=== PATIENT | female | born 1960 | race Two or more races ===

== ENCOUNTER 2018-05-29 08:02 | Emergency (ER) | payer MEDICAID, OTHER ==
[~2018-05-29] VITALS: Ht 170.2 cm; Wt 82.2 kg
[2018-05-29] MEDS ORDERED: SODIUM CHLORIDE 0.9% 1,000 ML IV ONE (08:21)
[2018-05-29] MEDS ORDERED: ONDANSETRON ODT 4 MG PO ONE (08:30)
[2018-05-29] MEDS ORDERED: SODIUM CHLORIDE FLUSH 10ML SYR IVF ONE (08:30)
[2018-05-29] MEDS ORDERED: THIAMINE 100 MG/ML, 2ML IM ONE (08:30)
[2018-05-29] MEDS ORDERED: SODIUM CHLORIDE 0.9% 1,000ML IVBOLUS ONE (08:30)
[2018-05-29] MEDS ORDERED: LORazepam 2 MG/ML, 1ML ONE ×2 (08:42→10:00)
[2018-05-29] MEDS ORDERED: THIAMINE 100 MG/ML, 2ML ONE (08:43)
[2018-05-29] MEDS ORDERED: ONDANSETRON 2MG/ML, 2ML ONE (08:43)
[2018-05-29 08:45] LABS: BASOPHILS # (AUTO) 0.01 x10^3/uL (0-0.1); BASOPHILS % (AUTO) 0 % (0-1); EOSINOPHILS # (AUTO) 0.01 x10^3/uL (0-0.4); EOSINOPHILS % (AUTO) 0 % (1-7); LYMPHOCYTES # (AUTO) 0.68 x10^3/uL (1-3.4); LYMPHOCYTES % (AUTO) 9 % (22-44); MD NO; MEAN CORPUSCULAR HEMOGLOBIN 35.2 pg (27.0-34.8); MEAN CORPUSCULAR HGB CONC 34.3 g/dL (32.4-35.8); MEAN CORPUSCULAR VOLUME 102.6 fL (80-100); MEAN PLATELET VOLUME 8.7 fL (7.4-10.4); MONOCYTES # (AUTO) 0.54 x10^3/uL (0.2-0.8); MONOCYTES % (AUTO) 7 % (2-9); NEUTROPHILS # (AUTO) 6.06 x10^3/uL (1.8-6.8); NEUTROPHILS % (AUTO) 83 % (42-75); PLATELET COUNT 158 x10^3/uL (130-400); RED BLOOD COUNT 4.44 x10^6/uL (3.82-5.3); RED CELL DISTRIBUTION WIDTH 16.3 % (9.6-15.2)
[2018-05-29] MEDS: LORazepam 2 MG/ML, 1ML IVPush PRN ×2 (08:52→10:05)
[2018-05-29 08:56] LABS: ALANINE AMINOTRANSFERASE 131 U/L (12-78); ALBUMIN 4.2 g/dL (3.4-5.0); ANION GAP 15 mmol/L (5-15); CALCIUM 10.6 mg/dL (8.5-10.1); CHLORIDE 96 mmol/L (98-107); CREATININE 1.15 mg/dL (0.55-1.02)
[2018-05-29 08:58] LABS: ALKALINE PHOSPHATASE 105 U/L (45-117); TOTAL PROTEIN 8.7 g/dL (6.4-8.2)
[2018-05-29] MEDS ORDERED: ONDANSETRON 2MG/ML, 2ML IVPush ONE (10:00)
[2018-05-29 10:45] VITALS: BP 143/85
== END 2018-05-29 12:03 | disposition left against medical advice (07) ==
LOC: ED 10:24
DX: F10.239 Alcohol dependence with withdrawal, unspecified (principal); K70.10 Alcoholic hepatitis without ascites; R94.5 Abnormal results of liver function studies; R11.2 Nausea with vomiting, unspecified
CPT/HCPCS: 36415; 80053; 83690; 85025; 93005; 96361; 96372; 96374; 96375; 96376; 99285; J2060; J2405; J3411; J7030